=== PATIENT | female | born 1990 | race Two or more races ===

== ENCOUNTER → 2019-12-25 13:58 | Outpatient (BNVA) | payer OTHER, SELFPAY | PROVIDERS: Visit Provider Physician Assistant Medical | DX: M25.532 Pain in left wrist (principal); M25.512 Pain in left shoulder | CPT/HCPCS: 73030; 73110; 73130; 99203 ==

== ENCOUNTER 2019-12-29 13:18 | Outpatient (REF) | payer OTHER, SELFPAY | END 2019-12-29 13:19 | disposition home or self-care (01) | LOC: HO.LAB 13:18 | PROVIDERS: Visit Provider Internal Medicine | DX: Z20.828 Contact with and (suspected) exposure to other viral communicable diseases (principal) | CPT/HCPCS: 87635 ==

== ENCOUNTER → 2019-12-30 11:49 | Outpatient (BNVA) | payer OTHER, SELFPAY | PROVIDERS: Visit Provider Internal Medicine | DX: M79.602 Pain in left arm (principal); S46.002A Unspecified injury of muscle(s) and tendon(s) of the rotator cuff of left shoulder, initial encounter; X50.0XXA Overexertion from strenuous movement or load, initial encounter | CPT/HCPCS: 99213 ==

== ENCOUNTER → 2020-01-13 11:01 | Outpatient (BNVA) | payer OTHER, SELFPAY | PROVIDERS: Visit Provider Internal Medicine | DX: S49.92XD Unspecified injury of left shoulder and upper arm, subsequent encounter (principal); X58.XXXD Exposure to other specified factors, subsequent encounter | CPT/HCPCS: 99213 ==

== ENCOUNTER 2020-01-18 11:03 | Outpatient (REF) | payer OTHER, SELFPAY | END 2020-01-18 11:04 | disposition home or self-care (01) | LOC: HO.LAB 11:03 | PROVIDERS: Visit Provider Internal Medicine | DX: Z20.828 Contact with and (suspected) exposure to other viral communicable diseases (principal) | CPT/HCPCS: C9803; U0003 ==

== ENCOUNTER → 2020-01-22 10:25 | Outpatient (BNVA) | payer OTHER, SELFPAY | PROVIDERS: PCP Internal Medicine; Referring Provider Internal Medicine; Visit Provider Orthopaedic Surgery | DX: M24.9 Joint derangement, unspecified (principal) | CPT/HCPCS: 99212 ==

== ENCOUNTER 2020-01-27 13:00 | Outpatient (RCR) | payer OTHER, SELFPAY ==
--- NOTE | 2020-01-04 17:10 | MHC.PT.EP ---
[facility] [place] Office [place] Office [place] [facility] [address] Milla Alfaro [address] [phone] F: [phone] F: [phone] F: [phone] F: [phone] Physical Therapy Plan of Care Date of Evaluation: 01/04/20 Date of Surgery: NA Diagnosis: L SHLDER STRAIN 12/24/19 Assessment: Pt IS 29 YO F REFERRED TO PT FROM WITH L SHLDER STRAIN AFTER AN INCIDENT AT WORK (PUSHING A FALLING STACK OF PUZZLES WITH L HAND THE SKID WAS TIPPING) ON 12/24/19. Pt SEEN AT AND HAD XRAY (NEGATIVE) AND REFERRED TO PT. Pt PRESENTS WITH SIGNIF C/O L SHLDER PAIN WITH SIGNIFICANT LIMITED ROM AND STRENGTH. ATTEMPT TO SEE XRAY REPORT (UNABLE TO ON COMPUTER SO CALL TO (MD NOT IN) SO CALLED TO RADIOLOGY AND IT WAS FAXED (DID NOT RECEIVE UNTIL AFTER EVAL SO GAVE Pt MIN EX TO WORK ON ). Pt SHOULD BENEFIT FROM PT TO HELP DECREASE MM TIGHTNESS TO HELP IMPROVE SHLDER ROM, STRENGTH AND FUNCTIONAL USE. Frequency and Duration: The patient will be seen 3X/WK X 3 WKS THEN 2X/WK X 3 MORE WEEKS Short Term Goals: 1. 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 INCREASED L SHLDER ROM FLEX AND ABD TO 160, ER TO 75, IR TO 45 2. RTW FD 3. DECREASED L SHLDER PAIN AT LEAST 50% WITH ADLS 4. INCREASED L UE STENGTH 1 MM GRADE AT LEAST Treatment Plan: Modalities to reduce pain, spasms and effusion. Manual therapy to restore motion and function. Therapeutic exercise to improve strength and flexibility. Neuromuscular re-education for posture and balance. Therapeutic activities to return to functional activities of daily living. Please sign and return to therapist. Thank you for your referral.
--- NOTE | 2020-03-19 16:01 | MHC.PT.DC ---
[facility] [place] Office [place] Office [place] Office [address] Milla Alfaro [address] [phone] F: [phone] F: [phone] F: [phone] F: [phone] Physical Therapy Discharge Report Diagnosis: L SHLDER STRAIN 12/24/19 Date of Surgery: NA Date of Evaluation: 01/04/20 Date of Discharge: 03/19/20 Treatments to Date: 7 Cancellations to Date: 1 No Shows to Date: 1 Discharge Status: Discharge Summary: Pt LAST SEEN ON 01/26/21. CONTINUES WITH SIGNIFICANT SHOULDER PAIN, AWAITING MRI. ?NO FURTHER APPTS SCHEDULED Electronically signed by: SCOTTY BRANCH PT Please sign and return to therapist. Thank you for your referral.
== END 2020-03-23 12:50 | disposition other institution (70) ==
LOC: HO.PT 13:00
PROVIDERS: Visit Provider Internal Medicine
DX: S46.912D Strain of unspecified muscle, fascia and tendon at shoulder and upper arm level, left arm, subsequent encounter (principal); X58.XXXD Exposure to other specified factors, subsequent encounter
CPT/HCPCS: 97014; 97110; 97140; 97162

== ENCOUNTER 2020-02-02 14:13 | Outpatient (REF) | payer OTHER, SELFPAY ==
--- NOTE | 2020-02-02 14:26 | MR_ITS ---
EXAMINATION: MR SHOULDER WITHOUT CONTRAST, LEFT CLINICAL INFORMATION: Left shoulder pain and decreased range of motion following an injury 1 month ago. COMPARISON: Left shoulder radiographs dated 12/25/2019. TECHNIQUE: Multisequence MR imaging of the left shoulder was obtained without contrast on a high-field strength scanner. FINDINGS: ROTATOR CUFF: Minimal supraspinatus tendinosis without a measurable tendon defect. No muscle atrophy or fatty infiltration. BICEPS: Normal CORACOACROMIAL ARCH: The undersurface of the acromion is flat with no subacromial spur. The acromioclavicular joint is normal. Subacromial Space: 6 mm. Coracohumeral Distance: 11 mm. LABRUM/CAPSULE: Normal. GLENOHUMERAL JOINT/MARROW: Normal. MR/MR shoulder LT wo con IMPRESSION: 1. Minimal supraspinatus tendinosis without a measurable rotator cuff tendon defect. 2. Otherwise unremarkable examination.
== END 2020-02-02 14:14 | disposition home or self-care (01) ==
LOC: HO.MRI 14:13
PROVIDERS: Visit Provider Orthopaedic Surgery
DX: S43.429A Sprain of unspecified rotator cuff capsule, initial encounter (principal)
CPT/HCPCS: 73221